=== PATIENT | female | born 1985 | race Caucasian/White ===

== ENCOUNTER 2018-03-06 15:02 | Inpatient (IN) ==
[2018-03-06] MEDS ORDERED: fentaNYL Citrate Inj 100 MCG/2 ML Ampul ONE (15:22)
[2018-03-06] MEDS ORDERED: oxyCODONE/Acetaminophen 10/325 Tablet PO ONE (15:25)
[2018-03-06] MEDS ORDERED: Bisacodyl 10 MG Supp RECTAL PRN (15:26)
[2018-03-06] MEDS ORDERED: Benzocaine 20% Top Spray 60 ML Can TOPICAL PRN (15:26)
[2018-03-06] MEDS ORDERED: Oxytocin 30 Units/500ml Premix 30 UNITS/500 ML BAG IV.CONT PRN (15:26)
[2018-03-06] MEDS ORDERED: Witch Hazel 50%/Glyderin 12.5% 40 Pad Jar RECTAL PRN (15:26)
[2018-03-06] MEDS ORDERED: Acetaminophen 325 MG Tablet PO PRN (15:26)
[2018-03-06] MEDS ORDERED: Naloxone Inj 0.4 MG/ML Vial IV.PUSH PRN (15:26)
--- NOTE | 2018-03-06 15:46 | P.OBDELI ---
Patient Started Active Labor: Yes Medical Induction of Labor: No Anesthesia: None Vaginal Delivery: Normal (Patient presented by [facility] delivered at home spontaneously ) Presentation: Other (Suspect vertex but unknown) Nuchal Cord: Other (Unknown) Shoulder Dystocia: Other (Unknown) Placenta: Spontaneous delivery (Majority the placenta was seen at the introitus- trailing membranes subsequently delivered with maternal Valsalva), Uterus explored + (Fundus firm uterus clear) Laceration: Vaginal, 1 deg (Also a left periurethral with repair) Repair: Chromic interrupted Estimated blood loss (mL): 50 (Approximately 300-400 cc of clotted blood seen between the legs when brought in by [facility]) : Male (Viable male delivered at home/hotel crying noted-discussed with Peds the cranium looks abnormal will further evaluate)
--- NOTE | 2018-03-06 15:58 | P.HPOB ---
History of Present Illness Primary Care Physician: No Primary Care Physician Chief Complaint: "I delivered in my hotel room" History of Present Illness: 32 yo who had no care presented via [facility] after she delivered her baby in a hotel room and her placenta was hanging out of her vagina upon arrival. She reports that the delivery occurred so quickly that she did not have time to get to the hospital. She was approximately 40 weeks. She is well- known to the OB ED. She is GBS positive. Hepatitis C positive. PMH: hepatitis c Social: history of drug use, tobacco use Weeks Gestation:: 40 Para: 2 : 2 - Inpatient Certification I certify that the inpatient services were ordered in accordance with Medicare regulations governing the order. This includes certification that hospital inpatient services are reasonable and necessary and in the case of services not specified as inpatient-only under 42 CFR 419.22(n), that they are appropriately provided as inpatient services in accordance to with the 2-midnight benchmark under 43 CFR 412.3(e) Estimated Total Length of Stay (Days): 2 Plans for Post Hospital Care: Home Review of Systems All other systems reviewed negative except as stated in HPI PMFSH - History History Provided By: Patient - Tobacco History Second Hand Smoke Exposure: Yes Smoking Status: Smoker, status unknown Tobacco Type: Cigarettes - Alcohol History How Often Do You Have a Drink Containing Alcohol: Monthly or less - Substance Use History Substance History: No History of Abuse - Travel History History of Recent Travel: No Medications and Allergies Active Medications: Active Medications Acetaminophen (Tylenol) 650 mg PO Q4H PRN PRN Reason: PAIN SCALE 1 TO 2 Al Hydroxide/Mg Hydroxide (Milk Of Magnget Liq) 30 ml PO Q12H PRN PRN Reason: Mild Constipation Benzocaine (Americaine 20% Top [place]) 1 spray TOPICAL Q4H PRN PRN Reason: For Perineum Discomfort Bisacodyl (Dulcolax Supp) 10 mg RECTAL DAILY PRN PRN Reason: SEVERE CONSITIPATION Diphtheria/Pertussis/Tetanus Vacc (Boostrix Vaccine Inj) 0.5 ml IM .ONCE ONE Stop: 03/06/18 16:01 Oxytocin (Pitocin 30 Units/Ns 500 Ml Premix) 30 units in 500 mls @ 100 mls/hr IV.CONT UNSCH PRN PRN Reason: Heavy bleeding Ibuprofen (Motrin) 800 mg PO Q8H PRN PRN Reason: For Cramping Lactulose (Lactulose Liq) 30 ml PO DAILY PRN PRN Reason: SEVERE CONSITIPATION Lidocaine HCl (Xylocaine 1% Inj) 0.1 ml I-DERMAL PRN PRN PRN Reason: For IV start Stop: 03/09/18 15:27 Lidocaine HCl (Xylocaine 1% Inj) 10 ml INFILTRATN PRN PRN PRN Reason: For episiotomy repair Stop: 03/08/18 15:27 Measles/Mumps/Rubella Vaccine Live (M-M-R Ii Vaccine Inj) 0.5 ml SQ .ONCE ONE Stop: 03/06/18 16:01 Naloxone HCl (Narcan Inj) 0.1 mg IV.PUSH Q2M PRN PRN Reason: for opiate reversal Ondansetron HCl (Zofran Odt) 4 mg PO Q6H PRN PRN Reason: NAUSEA OR VOMITING Senna/Docusate Sodium (Raya-Colace) 1 tab PO BID MYA Sennosides (Senokot) 17.2 mg PO Q12H PRN PRN Reason: Moderate Constipation Sodium Chloride (Ns Flush) 2 ml IV.FLUSH BID MYA Sodium Chloride (Ns Flush) 2 ml IV.FLUSH PRN PRN PRN Reason: FLUSH AFTER USING IV ACCESS Witch Muriel/Glycerin (Tucks Pads) 1 applicatio RECTAL QID PRN PRN Reason: HEMORRHOIDS Zolpidem Tartrate (Ambien) 5 mg PO HS PRN PRN Reason: SLEEP Allergies Allergy/AdvReac Type Severity Reaction Status Date / Time divalproex sodium Allergy Severe RASH Verified 01/26/18 15:44 lamotrigine Allergy Severe RASH Verified 03/06/18 15:37 meperidine Allergy Severe RASH Verified 02/25/18 16:54 propoxyphene Allergy Severe Rash Verified 02/25/18 16:54 Home Medications Medication Instructions Recorded Confirmed Type [id number] acid 1 tab PO DAILY 01/26/18 02/25/18 History [PreNata] Exam Narrative: General: visibly uncomfortable, crying, screaming at times Cardiovascular: well perfused Respiratory: tachypnea Genitourinary: placenta visible at opening of introitus, 1st degree laceration, periurethral laceration, approximately 300ml of blood on sheet under patient Caprini VTE Risk Assessment Caprini VTE Risk Assessment: Moderate/High Risk (score >= 2) Caprini Risk Assessment Model: Point Value = 1 Point Value = 2 Point Value = 3 Point Value = 5 Age 41-60 Minor surgery BMI > 25 kg/m2 Swollen legs Varicose veins or History of unexplained or recurrent spontaneous Oral contraceptives or hormone replacement Sepsis (< 1 month) Serious lung disease, including pneumonia (< 1 month) Abnormal pulmonary function Acute myocardial infarction Congestive heart failure (< 1 month) History of inflammatory bowel disease Medical patient at bed rest Age 61-74 Arthroscopic surgery Major open surgery (> 45 min) Laparoscopic surgery (> 45 min) Malignancy Confined to bed (> 72 hours) Immobilizing plaster cast Central venous access Age >= 75 History of VTE Family history of VTE Factor V Leiden Prothrombin [id number] Lupus anticoagulant Anticardiolipin antibodies Elevated serum homocysteine Heparin-induced thrombocytopenia Other congenital or acquired thrombophilia Stroke (< 1 month) Elective arthroplasty Hip, pelvis, or leg fracture Acute spinal cord injury (< 1 month) Prophylaxis Regimen: Total Risk Factor Score Risk Level Prophylaxis Regimen 0-1 Low Early ambulation 2 Moderate Order ONE of the following: *Sequential Compression Device (SCD) *Heparin 5000 units SQ BID 3-4 Higher Order ONE of the following medications: *Heparin 5000 units SQ TID *Enoxaparin/Lovenox 40 mg SQ daily (WT < 150 kg, CrCl > 30 mL/min) *Enoxaparin/Lovenox 30 mg SQ daily (WT < 150 kg, CrCl > 10-29 mL/min) *Enoxaparin/Lovenox 30 mg SQ BID (WT < 150 kg, CrCl > 30 mL/min) AND/OR *Sequential Compression Device (SCD) 5 or more Highest Order ONE of the following medications: *Heparin 5000 units SQ TID (Preferred with Epidurals) *Enoxaparin/Lovenox 40 mg SQ daily (WT < 150 kg, CrCl > 30 mL/min) *Enoxaparin/Lovenox 30 mg SQ daily (WT < 150 kg, CrCl > 10-29 mL/min) *Enoxaparin/Lovenox 30 mg SQ BID (WT < 150 kg, CrCl > 30 mL/min) AND *Sequential Compression Device (SCD) Assessment and Plan - Diagnosis (1) Vaginal delivery Code(s): O80 - Encounter for full-term uncomplicated delivery Status: Acute (2) No care in current in third trimester Code(s): O09.33 - Supervision of with insufficient care, third trimester Status: Acute - Plan 32 yo GBS positive and hep C positive female at approximately 40 weeks who delivered via prior to arrival. She had no care. -Admit to Labor and Delivery -Repair 1st degree and periurethral laceration -Placenta expelled via maternal vagal removal -Routine care
[2018-03-06] MEDS ORDERED: Diphtheria/Tetanus/Pertussis Vaccine Inj 0.5 ML Syringe IM ONE (16:00)
[2018-03-06] MEDS ORDERED: Measles/Mumps/Rubella Vaccine Inj 0.5 ML Vial SQ ONE (16:00)
[2018-03-06 20:48] VITALS: PULSE 67; TEMP 97.7
[2018-03-06] MEDS ORDERED: Zolpidem Tartrate 5 MG Tablet PO PRN (21:00)
[2018-03-06] MEDS: Senna/Docusate Sodium 8.6/50 MG Tablet PO SCH (21:47)
[2018-03-07] MEDS ORDERED: Influenza (Quadrivalent) Vaccine 0.5 ML Syringe IM ONE (06:00)
--- NOTE | 2018-03-07 08:06 | P.PNOB ---
Subjective Post day: 1 Interval history: Patient is a 32-year-old delivered at approximately 40 weeks. She had no care. Patient is day 1 after at her home/hotel room. She was brought in by [facility]. Patient's pain is well-controlled. Patient reports eating and drinking without any nausea or vomiting. Patient reports minimal bleeding. Patient has passed gas but no bowel movements. Patient is walking without lower extremity pain or shortness of breath. Patient reports desire for contraception. Her baby is being adopted. Adopted mother was present in the room. Patient would like a depot shot today. Objective Vital Signs/I&O: Vital Signs 03/06/18 15:30 03/06/18 15:35 03/06/18 15:45 Temperature Pulse Rate 64 63 Respiratory Rate 18 Blood Pressure 113/74 128/79 03/06/18 15:48 03/06/18 16:00 03/06/18 16:15 Temperature 98.0 F Pulse Rate 65 Respiratory Rate 17 18 Blood Pressure 125/63 03/06/18 16:22 03/06/18 16:30 03/06/18 17:30 Temperature 98.4 F Pulse Rate 126 H 64 63 Respiratory Rate 20 Blood Pressure 106/71 125/68 126/66 03/06/18 20:00 03/06/18 22:20 Temperature 97.7 F Pulse Rate 67 Respiratory Rate 18 2 L Blood Pressure 121/85 Intake & Output 03/06/18 03/07/18 03/07/18 18:59 06:59 18:59 Weight 107.501 kg Objective Remarks: GENERAL: Well-nourished, well-developed patient. CARDIOVASCULAR: Regular rate and rhythm without murmurs, gallops, or rubs. RESPIRATORY: Breath sounds equal bilaterally. No accessory muscle use. ABDOMEN/GI: Abdomen soft, non-tender. Fundus: Firm, non-tender at umbilicus. GENITOURINARY: Light to moderate bleeding. EXTREMITIES: No cyanosis or edema, non-tender, without signs of DVT. Medications and IVs: Active Medications Acetaminophen (Tylenol) 650 mg PO Q4H PRN PRN Reason: PAIN SCALE 1 TO 2 Last Admin: 03/07/18 04:58 Dose: 650 mg Al Hydroxide/Mg Hydroxide (Milk Of Magnesia Liq) 30 ml PO Q12H PRN PRN Reason: Mild Constipation Benzocaine (Americaine 20% Top [place]) 1 spray TOPICAL Q4H PRN PRN Reason: For Perineum Discomfort Bisacodyl (Dulcolax Supp) 10 mg RECTAL DAILY PRN PRN Reason: SEVERE CONSITIPATION Oxytocin (Pitocin 30 Units/Ns 500 Ml Premix) 30 units in 500 mls @ 100 mls/hr IV.CONT UNSCH PRN PRN Reason: Heavy bleeding Ibuprofen (Motrin) 800 mg PO Q8H PRN PRN Reason: For Cramping Last Admin: 03/06/18 21:47 Dose: 800 mg Lactulose (Lactulose Liq) 30 ml PO DAILY PRN PRN Reason: SEVERE CONSITIPATION Lidocaine HCl (Xylocaine 1% Inj) 0.1 ml I-DERMAL PRN PRN PRN Reason: For IV start Stop: 03/09/18 15:27 Last Admin: 03/06/18 16:27 Dose: 0.1 ml Lidocaine HCl (Xylocaine 1% Inj) 10 ml INFILTRATN PRN PRN PRN Reason: For episiotomy repair Stop: 03/08/18 15:27 Naloxone HCl (Narcan Inj) 0.1 mg IV.PUSH Q2M PRN PRN Reason: for opiate reversal Ondansetron HCl (Zofran Odt) 4 mg PO Q6H PRN PRN Reason: NAUSEA OR VOMITING Senna/Docusate Sodium (Raya-Colace) 1 tab PO BID COUNTS INCLUDE 234 BEDS AT THE [facility] Last Admin: 03/06/18 21:47 Dose: 1 tab Sennosides (Senokot) 17.2 mg PO Q12H PRN PRN Reason: Moderate Constipation Sodium Chloride (Ns Flush) 2 ml IV.FLUSH BID COUNTS INCLUDE 234 BEDS AT THE [facility] Last Admin: 03/06/18 21:47 Dose: Not Given Sodium Chloride (Ns Flush) 2 ml IV.FLUSH PRN PRN PRN Reason: FLUSH AFTER USING IV ACCESS Witch Muriel/Glycerin (Tucks Pads) 1 applicatio RECTAL QID PRN PRN Reason: HEMORRHOIDS Zolpidem Tartrate (Ambien) 5 mg PO HS PRN PRN Reason: SLEEP Assessment and Plan - Diagnosis (1) Vaginal delivery Code(s): O80 - Encounter for full-term uncomplicated delivery Status: Acute (2) No care in current in third trimester Code(s): O09.33 - Supervision of with insufficient care, third trimester Status: Acute - Plan Patient is a 32-year-old delivered at approximately 40 weeks. Patient is day 1 after . Patient was counseled to do 6 weeks of pelvic rest. Patient was counseled to keep her follow up OB appointment on 03/13. --AF VSS --Continue routine care --Motrin when necessary for pain --Encourage OOB --Pelvic rest for 6 weeks will need follow-up appointment at that time. --Contraception: depot shot --Anticipate discharge today
[2018-03-07] MEDS ORDERED: medroxyPROGESTERone Acetate Inj 150 MG/ML Syringe IM ONE (09:07)
[2018-03-07] MEDS: Senna/Docusate Sodium 8.6/50 MG Tablet PO SCH (10:03)
[2018-03-07 10:05] VITALS: BP 105/62; RESP 18
== END 2018-03-07 16:00 | disposition home or self-care (01) ==
LOC: H2E 15:02 → H1EA 17:09
PROVIDERS: ADMIT Obstetrics & Gynecology; ATTEND Obstetrics & Gynecology